=== PATIENT | male | born 1950 | race Caucasian/White ===

== ENCOUNTER 2023-11-18 23:31 | Emergency (ER) | payer MEDICARE, OTHER ==
[~2023-11-18] VITALS: Ht 177.8 cm; Wt 74.8 kg
[2023-11-19] MEDS ORDERED: CIPR7.5D9 LEFT EAR (00:09)
[2023-11-19 00:33] VITALS: BP 151/76; TEMP 97.9; O2SAT 98
== END 2023-11-19 00:35 | disposition home or self-care (01) ==
LOC: ER 23:40
DX: H60.92 Unspecified otitis externa, left ear (principal); E11.9 Type 2 diabetes mellitus without complications